=== PATIENT | female | born 1995 | race Caucasian/White ===

== ENCOUNTER 2017-03-27 08:36 | Emergency (ER) | payer MEDICAID ==
[2017-03-27] MEDS ORDERED: ONDANSETRON 4 MG/2 ML VIAL ONE (08:49)
[2017-03-27] MEDS ORDERED: ONDANSETRON 4 MG/2 ML VIAL IVP ONE (08:57)
[2017-03-27] MEDS ORDERED: NS 1,000 ML IV ONE ×2 (08:57)
[2017-03-27 09:07] LABS: % IMMATURE GRANULYOCYTES 0.7 % (0.0-1.1); ABSOLUTE IMMATURE GRANULOCYTES 0.13 10^3/uL (0.00-0.10); ADD DIFF? NO; ADD MORPH? NO; ADD SCAN? NO; ATYPICAL LYMPHOCYTE FLAG 20 (0-99); FRAGMENT RBC FLAG 0 (0-99); HEMOGLOBIN 15.8 g/dL (12.6-16.3); LEFT SHIFT FLG 0 (0-99); LIPEMIA HEMOLYSIS FLAG 80 (0-99); MEAN CELL HEMOGLOBIN 27.3 pg (27.9-34.1); MEAN CELL HEMOGLOBIN CONCENTR. 33.6 g/dL (32.4-36.7); MEAN CELL VOLUME 81.3 fL (81.5-99.8); MEAN PLATELET VOLUME 9.9 fL (8.7-11.7); PLATELET CLUMPS FLAG 10 (0-99); PLATELET COUNT 333 10^3/uL (150-400); RED BLOOD CELL COUNT 5.78 10^6/uL (4.18-5.33); RED CELL DISTRIBUTION WIDTH 13.2 % (11.5-15.2)
--- NOTE | 2017-03-27 09:22 | EDPHY ---
H & P Stated Complaint: n/v/d since 0400 Time Seen by Provider: 03/27/17 08:51 HPI/ROS: Chief complaint: Nausea, vomiting and diarrhea History of present illness: This is a 21-year-old female who presents to the emergency department for evaluation nausea, vomiting and diarrhea. Patient reports the onset of symptoms late last night. She reports multiple episodes of vomiting and diarrhea, described as nonbloody. She has had associated abdominal cramping. She reports an associated mild headache and reports associated tactile fevers. Patient denies specific precipitating factors. She denies alleviating factors. She denies other associated signs or symptoms including no urinary symptoms. She denies sick contacts, environmental exposures or recent antibiotic use. She did travel to [facility] over a month ago has been well since then. Review of systems: A 10 point review of systems was obtained and other than described above was negative - Personal History LMP (Females 10-55): 22-28 Days Ago Current Tetanus/Diphtheria Vaccine: Yes - Medical/Surgical History Hx Asthma: No Hx Chronic Respiratory Disease: No Hx Diabetes: No Hx Cardiac Disease: No Hx Renal Disease: No Hx Cirrhosis: No Hx Alcoholism: No Hx HIV/AIDS: No Hx Splenectomy or Spleen Trauma: No Other PMH: denies - Social History Smoking Status: Never smoked - Physical Exam Exam: General Appearance: Alert, nontoxic. Eyes: Pupils equal and round no pallor or injection. ENT, Mouth: Mucous membranes moist. Respiratory: There are no retractions, lungs are clear to auscultation. Cardiovascular: Regular rate and rhythm. Gastrointestinal: Abdomen is soft and nontender, no masses, bowel sounds normal. Neurological: Alert and oriented. Strength and sensation intact and symmetrical. Skin: Warm and dry, no rashes. Musculoskeletal: Neck is supple nontender. Extremities are symmetrical, full range of motion. Psychiatric: Patient is oriented X 3, there is no agitation. Constitutional: Initial Vital Signs Temperature (C) 36.5 C 03/27/17 08:38 Heart Rate 84 03/27/17 08:38 Respiratory Rate 18 03/27/17 08:38 Blood Pressure 123/98 H 03/27/17 08:38 O2 Sat (%) 99 03/27/17 08:38 O2 Delivery Mode Room Air Allergies/Adverse Reactions: No Known Allergies Allergy (Unverified 03/27/17 08:38) Home Medications: Medication Instructions Recorded Bcp 03/27/17 Ondansetron Odt [Zofran Odt 4 mg 4 mg PO Q4 #10 tab 03/27/17 (*)] Medical Decision Making ED Course/Re-evaluation: Patient seen under the supervision of my secondary supervising physician Dr. Ernst Chapman. Patient presents to the emergency department for nausea, vomiting and diarrhea. On presentation she is nontoxic. Afebrile and vital signs are stable. She has an unremarkable physical exam including benign serial abdominal exams. Blood studies do show a significant leukocytosis, likely a stress reaction from persistent vomiting, they are otherwise largely unremarkable. Patient is IV hydrated and treated with Zofran. She is feeling better. She is tolerating oral challenges. I believe she is appropriate for outpatient management. She is discharged home. She is asked to follow up with the primary care doctor for this week for recheck. Strict return precautions are given. Patient voiced understanding and agreement with plan. Differential Diagnosis: Included but not limited to gastritis, gastroenteritis, biliary tract disease, pancreatitis, colitis, and associated complications - Data Points Laboratory Results: Laboratory Results 03/27/17 08:52 03/27/17 08:52 03/27/17 03/27/17 03/27/17 08:52 08:52 08:52 WBC 19.77 10^3/uL H 10^3/uL (3.80-9.50) RBC 5.78 10^6/uL H 10^6/uL (4.18-5.33) Hgb 15.8 g/dL g/dL (12.6-16.3) Hct 47.0 % % (38.0-47.0) MCV 81.3 fL L fL (81.5-99.8) MCH 27.3 pg L pg (27.9-34.1) MCHC 33.6 g/dL g/dL (32.4-36.7) RDW 13.2 % % (11.5-15.2) Plt Count 333 10^3/uL 10^3/uL (150-400) MPV 9.9 fL fL (8.7-11.7) Neut % (Auto) 89.5 % H % (39.3-74.2) Lymph % (Auto) 5.7 % L % (15.0-45.0) [place] % (Auto) 3.7 % L % (4.5-13.0) Eos % (Auto) 0.1 % L % (0.6-7.6) Baso % (Auto) 0.3 % % (0.3-1.7) Nucleat RBC Rel Count 0.0 % % (0.0-0.2) Absolute Neuts (auto) 17.70 10^3/uL H 10^3/uL (1.70-6.50) Absolute Lymphs (auto) 1.13 10^3/uL 10^3/uL (1.00-3.00) Absolute Monos (auto) 0.73 10^3/uL 10^3/uL (0.30-0.80) Absolute Eos (auto) 0.02 10^3/uL L 10^3/uL (0.03-0.40) Absolute Basos (auto) 0.06 10^3/uL 10^3/uL (0.02-0.10) Absolute Nucleated RBC 0.00 10^3/uL 10^3/uL (0-0.01) Immature Gran % 0.7 % % (0.0-1.1) Immature Gran # 0.13 10^3/uL H 10^3/uL (0.00-0.10) Sodium 142 mEq/L mEq/L (134-144) Potassium 4.1 mEq/L mEq/L (3.5-5.2) Chloride 105 mEq/L mEq/L (97-110) Carbon Dioxide 21 mEq/l L mEq/l (22-31) Anion Gap 16 mEq/L mEq/L (8-16) BUN 16 mg/dL mg/dL (7-23) Creatinine 0.7 mg/dL mg/dL (0.6-1.0) Estimated GFR > 60 Glucose 107 mg/dL H mg/dL (70-100) Calcium 10.5 mg/dL H mg/dL (8.5-10.4) Total Bilirubin 1.0 mg/dL mg/dL (0.1-1.4) Conjugated Bilirubin 0.4 mg/dL mg/dL (0.0-0.5) Unconjugated Bilirubin 0.6 mg/dL mg/dL (0.0-1.1) AST 33 IU/L IU/L (14-46) ALT 43 IU/L IU/L (9-52) Alkaline Phosphatase 80 IU/L IU/L (38-126) Total Protein 9.6 g/dL H g/dL (6.3-8.2) Albumin 5.5 g/dL H g/dL (3.5-5.0) Lipase 183.0 IU/L IU/L (23-300) Beta HCG, Qual NEGATIVE Medications Given: Discontinued Medications Sodium Chloride (Ns) 1,000 mls @ 0 mls/hr IV ONCE ONE PRN Reason: Wide Open Stop: 03/27/17 08:58 Last Admin: 03/27/17 08:59 Dose: 1,000 mls Sodium Chloride (Ns) 1,000 mls @ 0 mls/hr IV ONCE ONE PRN Reason: Wide Open Stop: 03/27/17 08:58 Last Admin: 03/27/17 09:40 Dose: 1,000 mls Ondansetron HCl (Zofran) 4 mg IVP EDNOW ONE Stop: 03/27/17 08:58 Last Admin: 03/27/17 08:59 Dose: 4 mg Departure - Departure Disposition: Home, Routine, Self-Care Clinical Impression: Vomiting and diarrhea Condition: Good Instructions: Acute Nausea and Vomiting (ED), Acute Diarrhea (ED) Additional Instructions: Follow-up with [facility] for recheck this week If symptoms worsen or new symptoms develop return to the emergency room for recheck Referrals: NONE *PRIMARY CARE P,. [Primary Care Provider] - As per Instructions [facility]] - As per Instructions Supriya Krishnamurthy MD [[facility] Primary Care Provider] - As per Instructions Prescriptions: Ondansetron Odt [Zofran Odt 4 mg (*)] 4 mg PO Q4 #10 tab
[2017-03-27 09:34] LABS: ALANINE AMINOTRANSFERASE 43 IU/L (9-52); ALBUMIN 5.5 g/dL (3.5-5.0); ALKALINE PHOSPHATASE 80 IU/L (38-126); ANION GAP 16 mEq/L (8-16); ASPARTATE AMINOTRANSFERASE 33 IU/L (14-46); BILIRUBIN-CONJUGATED 0.4 mg/dL (0.0-0.5); BILIRUBIN-UNCONJUGATED 0.6 mg/dL (0.0-1.1); CALCIUM 10.5 mg/dL (8.5-10.4); CARBON DIOXIDE 21 mEq/l (22-31); CHLORIDE 105 mEq/L (97-110); CREATININE 0.7 mg/dL (0.6-1.0); GLOMERULAR FILTRATION RATE > 60; GLUCOSE 107 mg/dL (70-100); POTASSIUM 4.1 mEq/L (3.5-5.2); SODIUM 142 mEq/L (134-144); TOTAL PROTEIN 9.6 g/dL (6.3-8.2)
[2017-03-27 10:40] VITALS: BP 115/64; PULSE 74; RESP 16; TEMP 98.2; O2SAT 100
== END 2017-03-27 10:38 | disposition home or self-care (01) ==
DX: R19.7 Diarrhea, unspecified (principal); R11.10 Vomiting, unspecified
CPT/HCPCS: 96374; J2405

== ENCOUNTER 2019-04-16 08:32 | Emergency (ER) | payer MEDICAID ==
--- NOTE | 2019-04-16 08:59 | EDPHY ---
H & P Stated Complaint: Left upper chest and back pain for 4 days, worse with inspiration. Source: Patient Exam Limitations: No limitations - Personal History Current Tetanus Diphtheria and Acellular Pertussis (TDAP): Yes - Medical/Surgical History Hx Asthma: No Hx Chronic Respiratory Disease: No Hx Diabetes: No Hx Cardiac Disease: No Hx Renal Disease: No Hx Cirrhosis: No Hx Alcoholism: No Hx HIV/AIDS: No Hx Splenectomy or Spleen Trauma: No Other PMH: denies - Social History Smoking Status: Never smoked Time Seen by Provider: 04/16/19 08:55 HPI/ROS: HPI: This is a 23-year-old female who presents with Chief Complaint: Left upper chest and back pain for 4 days, worse with inspiration. Location: Left lower chest and midback Quality: Pain Duration: 4 days Signs and Symptoms: no shortness of breath at rest, no shortness of breath on exertion, no cough, + chest pain, no palpitations, no lower extremity edema, no wheezing, no orthopnea, no paroxysmal nocturnal dyspnea, no fever, no injury/ trauma, no hemoptysis, no carpal pedal spasms Timing: Intermittent episodes Severity: [id number] Context: Patient is generally healthy, nonsmoker, has a Fay IUD and does not have regular menses, complains of insidious onset of left lower chest and midback pain that is nonradiating in nature and worse with inspiration. Denies any cough, fever, wheezing, shortness of breath, lower extremity edema. No recent long distance travel. No history of lung disease. Right-hand dominant and no recent over exertion or strenuous exercise. [facility] but does not have a primary care provider. Pain is not positional. No recent upper respiratory symptoms. Modifying Factors: Has tried no [id number] pain medications Comment: ROS: A comprehensive 10 system review of systems is otherwise negative aside from elements mentioned in the history of present illness. MEDICAL/SURGICAL/SOCIAL HISTORY: Medical history: Generally healthy. Does not take any regular medications. Fay IUD. Surgical history: Denies Social history: Never smoked. Social alcohol use. Denies drug use. Student at [employer]. CONSTITUTIONAL: Extremely well-appearing polite and cooperative young adult white female, awake and alert, no obvious distress HEENT: Atraumatic and normocephalic, PERRL, EOMI. Nares patent; no rhinorrhea; no nasal mucosal edema. Tympanic membranes clear. Oropharynx clear, no exudate and moist pink mucosa. Airway patent. No lymphadenopathy. No meningismus. Cardiovascular: Normal S1/S2, regular rate, regular rhythm, without murmur rub or gallop. PULMONARY/CHEST: Symmetrical and left lower anterior rib reproducible pain especially between the ribs with no deformities/ecchymosis/deformity. Clear to auscultation bilaterally. Good air movement. No accessory muscle usage. ABDOMEN: Soft, nondistended, nontender, no rebound, no guarding, no peritoneal signs, no masses or organomegaly. No CVAT. EXTREMITIES: 2/2 pulses, strength 5/5, no deformities, no clubbing, no cyanosis or edema. Negative Homans sign. NEUROLOGICAL: no focal neuro deficits. GCS 15. SKIN: Warm and dry, no erythema. no rash. Good capillary refill. (Aziza Bell) Constitutional: Initial Vital Signs Temperature (C) 36.6 C 04/16/19 08:32 Heart Rate 68 04/16/19 08:32 Respiratory Rate 16 04/16/19 08:32 Blood Pressure 135/85 H 04/16/19 08:32 O2 Sat (%) 98 04/16/19 08:32 O2 Delivery Mode Room Air Allergies/Adverse Reactions: No Known Allergies Allergy (Unverified 03/27/17 08:38) Home Medications: Medication Instructions Recorded Bcp 03/27/17 Ondansetron Odt [Zofran Odt 4 mg 4 mg PO Q4 #10 tab 03/27/17 (*)] Ibuprofen [Ibu] 800 mg PO Q8 PRN #15 tablet 04/16/19 Medical Decision Making - Diagnostics Imaging Results: Imaging Impressions Chest X-Ray 04/16/19 08:59 Impression: No acute findings in the chest. ED Course/Re-evaluation: Vital signs reviewed and stable upon arrival. No tachycardia or hypoxia. Placed on vibration engineer with no arrhythmias, heart block, ST elevations noted. Wells criteria is low for pulmonary embolism appropriate to order D-dimer IV access, laboratory studies, chest x-ray ordered Given IV Toradol 30 mg Suspect this is costochondritis/musculoskeletal in nature Abdomen is soft and nontender and doubt surgical process or need for imaging [id number]: Notified by [facility] that lab is requesting new D-dimer lab draw [id number]: Chest x-ray my read shows no opacity, no effusion, no widened mediastinum , no pneumothorax, no rib fractures Laboratory studies reviewed. No signs of leukocytosis/anemia/platelet dysfunction/MAREK/electrolyte imbalance//VTE. I do not think that patient has pericarditis. This patient was seen under the supervision of my secondary supervising physician. I evaluated and cared for this patient with attending. (Aziza Bell) I did not see this patient while she was in the emergency department. However her care was discussed with the PA while the patient was in the department. I agree with treatment plan and management (Luis Solomon) Differential Diagnosis: Chest pain including but not limited to myocardial ischemia, pulmonary embolus, chest wall pain, pleural inflammation and pulmonary infectious causes. (Aziza Bell) - Data Points Laboratory Results: Laboratory Results 04/16/19 09:05 04/16/19 09:05 04/16/19 04/16/19 04/16/19 09:45 09:05 09:05 WBC RBC Hgb Hct MCV MCH MCHC RDW Plt Count MPV Neut % (Auto) Lymph % (Auto) [place] % (Auto) Eos % (Auto) Baso % (Auto) Nucleat RBC Rel Count Absolute Neuts (auto) Absolute Lymphs (auto) Absolute Monos (auto) Absolute Eos (auto) Absolute Basos (auto) Absolute Nucleated RBC Immature Gran % Immature Gran # D-Dimer 0.31 ug/mLFEU ug/mLFEU (0.00-0.50) Sodium 138 mEq/L mEq/L (135-145) Potassium 4.0 mEq/L mEq/L (3.5-5.2) Chloride 103 mEq/L mEq/L (97-110) Carbon Dioxide 24 mEq/l mEq/l (22-31) Anion Gap 11 mEq/L mEq/L (6-14) BUN 8 mg/dL mg/dL (7-23) Creatinine 0.8 mg/dL mg/dL (0.6-1.0) Estimated GFR > 60 Glucose 86 mg/dL mg/dL (70-100) Calcium 10.3 mg/dL mg/dL (8.5-10.4) Beta HCG, Qual NEGATIVE 04/16/19 04/16/19 09:05 09:05 WBC 8.55 10^3/uL 10^3/uL (3.80-9.50) RBC 4.91 10^6/uL 10^6/uL (4.18-5.33) Hgb 14.3 g/dL g/dL (12.6-16.3) Hct 42.6 % % (38.0-47.0) MCV 86.8 fL fL (81.5-99.8) MCH 29.1 pg pg (27.9-34.1) MCHC 33.6 g/dL g/dL (32.4-36.7) RDW 13.2 % % (11.5-15.2) Plt Count 266 10^3/uL 10^3/uL (150-400) MPV 9.5 fL fL (8.7-11.7) Neut % (Auto) 71.4 % % (39.3-74.2) Lymph % (Auto) 19.4 % % (15.0-45.0) [place] % (Auto) 7.7 % % (4.5-13.0) Eos % (Auto) 0.5 % L % (0.6-7.6) Baso % (Auto) 0.5 % % (0.3-1.7) Nucleat RBC Rel Count 0.0 % % (0.0-0.2) Absolute Neuts (auto) 6.11 10^3/uL 10^3/uL (1.70-6.50) Absolute Lymphs (auto) 1.66 10^3/uL 10^3/uL (1.00-3.00) Absolute Monos (auto) 0.66 10^3/uL 10^3/uL (0.30-0.80) Absolute Eos (auto) 0.04 10^3/uL 10^3/uL (0.03-0.40) Absolute Basos (auto) 0.04 10^3/uL 10^3/uL (0.02-0.10) Absolute Nucleated RBC 0.00 10^3/uL 10^3/uL (0-0.01) Immature Gran % 0.5 % % (0.0-1.1) Immature Gran # 0.04 10^3/uL 10^3/uL (0.00-0.10) D-Dimer REJ Sodium Potassium Chloride Carbon Dioxide Anion Gap BUN Creatinine Estimated GFR Glucose Calcium Beta HCG, Qual Medications Given: Discontinued Medications Ketorolac Tromethamine (Toradol) 30 mg IVP EDNOW ONE Stop: 04/16/19 09:01 Last Admin: 04/16/19 09:06 Dose: 30 mg Departure - Departure Disposition: Home, Routine, Self-Care Clinical Impression: Musculoskeletal chest pain Condition: Good Instructions: Costochondritis (ED), Musculoskeletal Pain (ED) Additional Instructions: Please avoid any heavy lifting or strenuous exercise until all symptoms have resolved. Perform gentle stretching exercises. Take Tylenol 650 mg every 4 hours and/or Ibuprofen 800 mg every 8 hours with food as needed for pain. Apply heating pad for 30 minutes at a time; 2-3 times per day for the next 1-2 days. [facility] if symptoms persist at which time they will evaluate and recommend with you if conservative management versus further workup is indicated. Referrals: [facility],. [Clinic] - As per Instructions Stand Alone Forms: School Excuse Prescriptions: Ibuprofen [Ibu] 800 mg PO Q8 PRN #15 tablet PRN Reason: Pain, Moderate
[2019-04-16] MEDS ORDERED: KETOROLAC 30 MG/1 ML SDV IVP ONE (09:00)
[2019-04-16 09:19] LABS: PLATELET COUNT 266 10^3/uL (150-400)
[2019-04-16 10:22] VITALS: BP 120/78
== END 2019-04-16 10:23 | disposition home or self-care (01) ==
DX: R07.89 Other chest pain (principal)
CPT/HCPCS: 96374; J1885